=== PATIENT | female | born 1955 | race Caucasian/White ===

== ENCOUNTER → 2022-09-27 14:10 | Outpatient (CLI) | payer OTHER, SELFPAY ==
[2022-09-27 17:15] LABS: Urine N gonorrhoeae NOT DETECTED
[2022-09-27 17:24] LABS: Urine Chlamydia NOT DETECTED
== END ==
PROVIDERS: Visit Provider Physician Assistant
DX: N39.0 Urinary tract infection, site not specified (principal); R30.0 Dysuria; Z76.89 Persons encountering health services in other specified circumstances
CPT/HCPCS: 87086; 87210; 87491; 87591